=== PATIENT | female | born 1935 | race Asian ===

== ENCOUNTER → 2016-08-07 | Outpatient (CLI) | payer OTHER ==
[~2016-08-07] MED LIST: AMLO10TA55 PO; ASPI81 PO; BUDE10.22 IH; CALC-719 PO; CEFT1VIA IM; LORA10TA7 PO; METFORMIN PO; METO-327 PO; METR500 PO; MULT1CAP42 PO; OLME20TA14 PO; PRAV20TA4 PO; TIOT185 IH
== END | disposition home or self-care (01) ==
LOC: RADMN 10:28
PROVIDERS: ATTEND Internal Medicine
DX: I70.0 Atherosclerosis of aorta (principal)
CPT/HCPCS: 71020

== ENCOUNTER 2017-06-27 02:24 | Emergency (ER) | payer OTHER ==
[~2017-06-27] VITALS: Ht 147.3 cm; Wt 59.1 kg
[~2017-06-27 02:24] MED LIST changes: -METO-327 PO; +METO-416 PO; +OLME20TA10 PO; -OLME20TA14 PO
[2017-06-27] MEDS ORDERED: PROME5L PO (02:44)
[2017-06-27] MEDS ORDERED: VITAD1000 PO (02:44)
[2017-06-27] MEDS ORDERED: DOCU250C91 PO (02:44)
[2017-06-27] MEDS ORDERED: ESOM20CA31 PO (02:44)
[2017-06-27] MEDS ORDERED: ESCI10TA PO (02:44)
[2017-06-27] MEDS ORDERED: RALO60 PO (02:44)
[2017-06-27] MEDS ORDERED: OS500 PO (02:44)
[2017-06-27 04:18] LABS: GLUCOSE,POINT OF CARE 133 MG/DL (70-110)
[2017-06-27 05:43] VITALS: BP 203/86
[2017-06-27] MEDS ORDERED: DEXAMETHASONE SOD PHOS 4 MG/ML 5 ML VIAL IM ONE (06:15)
[2017-06-27] MEDS ORDERED: IBUPROFEN 600 MG TABLET PO ONE (06:15)
== END 2017-06-27 06:34 | disposition home or self-care (01) ==
LOC: EMS 02:25
DX: J02.8 Acute pharyngitis due to other specified organisms (principal); B97.89 Other viral agents as the cause of diseases classified elsewhere; E11.9 Type 2 diabetes mellitus without complications; E78.00 Pure hypercholesterolemia, unspecified; I10 Essential (primary) hypertension; Z79.4 Long term (current) use of insulin; Z79.82 Long term (current) use of aspirin; Z79.899 Other long term (current) drug therapy; Z91.018 Allergy to other foods
CPT/HCPCS: 82962; 93005; 96372; 99283; J1100